=== PATIENT | male | born 1995 | race American Indian/Alaskan Native ===

== ENCOUNTER 2018-09-09 23:53 | Emergency (ER) | payer OTHER, BC ==
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
[2018-09-10] MEDS ORDERED: VASELINE LIP THERAPY TP PRN (00:42)
[2018-09-10] MEDS ORDERED: VASELINE LIP THERAPY TP ONE (00:45)
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
[2018-09-10] MEDS ORDERED: TYLENOL ONE (01:32)
[2018-09-10] MEDS ORDERED: TYLENOL PO ONE (01:33)
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
[2018-09-10] MEDS ORDERED: NACL 0.9% 1000 ML 1,000 ML ONE (02:14)
[2018-09-10] MEDS ORDERED: TORADOL ONE (02:14)
[2018-09-10] MEDS ORDERED: TORADOL IV ONE (02:17)
[2018-09-10] MEDS ORDERED: NACL 0.9% 1000 ML 1,000 ML IV ONE (02:17)
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
[2018-09-10 05:45] VITALS: BP 134/80
== END 2018-09-10 04:31 | disposition home or self-care (01) ==
LOC: ED 23:53
DX: M54.2 Cervicalgia (principal); M25.551 Pain in right hip; M79.661 Pain in right lower leg; M79.18 Myalgia, other site; Z79.899 Other long term (current) drug therapy; V49.49XA Driver injured in collision with other motor vehicles in traffic accident, initial encounter; Y93.89 Activity, other specified; Y92.89 Other specified places as the place of occurrence of the external cause; Y99.8 Other external cause status
CPT/HCPCS: 70450; 72125; 73502; 73590; 96374; 99285; J1885; J7030